=== PATIENT | male | born 1980 | race Two or more races ===

== ENCOUNTER 2022-02-13 15:05 | Emergency (ER) | payer SELFPAY ==
[~2022-02-13] VITALS: Ht 165.1 cm; Wt 71.0 kg
[2022-02-13] MEDS ORDERED: TETANUS, DIPHTHERIA, PERTUSSIS VAC/PF 0.5ML (>10YR OLD) IM ONE (16:30)
[2022-02-13] MEDS ORDERED: LIDOCAINE HCL 1% 20ML VIAL (Pyxis) INJ INFIL ONE (16:45)
[2022-02-13 16:47] LABS: CHLORIDE 104 mEq/L
[2022-02-13 16:50] LABS: BASOPHILS % 0.4 % (0.0-2.0); EOSINOPHILS % 1.6 % (0.0-5.0); HEMATOCRIT. 41.9 %; HEMOGLOBIN. 13.7 g/dL; LYMPHOCYTES % 20.6 %; MEAN CORPUSCULAR HEMOGLOBIN 28.4 pg; MEAN CORPUSCULAR VOLUME 86.7 fL; MONOCYTES % 4.9 % (2.0-8.0); NEUTROPHILS % 72.5 %; PLATELET 273 x1000/uL (130-400); RED BLOOD CELL COUNT 4.84 mill/uL; RED CELL DISTRIBUTION WIDTH 12.7 % (11.6-14.6)
[2022-02-13] MEDS: LIDOCAINE HCL 1% 30ML VIAL (10MG/ML) INFIL NR (17:47)
[2022-02-13 20:30] VITALS: BP 119/63
== END 2022-02-13 20:53 | disposition home or self-care (01) ==
LOC: EDBD 15:05 → EDSEX 15:05 → ER 15:05
DX: R55 Syncope and collapse (principal); S01.511A Laceration without foreign body of lip, initial encounter; W18.30XA Fall on same level, unspecified, initial encounter; Y93.89 Activity, other specified; Y92.89 Other specified places as the place of occurrence of the external cause; Y99.8 Other external cause status
CPT/HCPCS: 12011; 36415; 71045; 80053; 83690; 83880; 84484; 85025; 99284; J3490; Z7610; 90715